=== PATIENT | male | born 1975 | race Two or more races ===

== ENCOUNTER 2017-02-08 19:58 | Emergency (ER) | payer OTHER ==
[2017-02-08 20:17] VITALS: BP 137/96; PULSE 80; RESP 18; TEMP 98.4; O2SAT 95
--- NOTE | 2017-02-08 20:38 | UCPHY ---
H & P Patient Type: Established Chief Complaint Nursing Narrative: L ear pain x 1 week, getting progressively worse the last few days. now with intermittent L chest pain with breathing. Time Seen by Provider: 02/08/17 20:17 HPI/ROS: Chief Complaint: Left ear pain, bilateral chest pain. HPI: 42-year-old male presenting with 1 week of worsening left ear pain. Patient has also been having intermittent pain in both sides of his chest. He states it hurts to move around and occasionally take hurts to take a deep breath. Does not worsen on exertion. No shortness of breath. He is waking up with it in noticing it when he gets up and moves around 1st thing in the morning. Gets better as the day goes on. No fevers or chills. No cough. No nausea or vomiting. Does not have a family history of coronary artery disease. No recent travel or periods of immobility. No leg pain or swelling. ROS: 10 point Review of Systems is negative except as noted in the HPI. PMH: None Medications: None Allergies no known drug allergies Social History: No smoking, occasional alcohol, no recreational drug use Family History: No family history of coronary artery disease or blood clotting disorders Physical Exam: Gen: Awake, Alert, No Distress HEENT: Ears: He has bilateral cerumen impactions left greater than right. When cleared there is no tympanic membrane erythema or effusion Nose: no rhinorrhea Eyes: PERRLA, EOMI Mouth: Moist mucosa Neck: Supple, no JVD Chest: Bilateral chest tenderness with palpation of the anterior ribcage is reproducing his presenting complaint., lungs clear to auscultation Heart: S1, S2 normal, no murmur Abd: Soft, non-tender, no guarding Back: no CVA tenderness, no midline tenderness Ext: no edema, non-tender Skin: no rash Neuro: CN II-XII intact, Sensation grossly intact, Strength 5/5 in bilateral upper and lower extremities - Personal History Current Tetanus Diphtheria and Acellular Pertussis (TDAP): Yes - Medical/Surgical History Hx Asthma: No Hx Chronic Respiratory Disease: No Hx Diabetes: No Hx Cardiac Disease: No Hx Renal Disease: No Hx Cirrhosis: No Hx Alcoholism: No Hx HIV/AIDS: No Hx Splenectomy or Spleen Trauma: No Other PMH: med hx-bronchitis. surg-none - Family History Significant Family History: No pertinent family hx - Social History Smoking Status: Former smoker Constitutional: Initial Vital Signs Temperature (C) 36.9 C 02/08/17 20:15 Heart Rate 80 02/08/17 20:15 Respiratory Rate 18 02/08/17 20:15 Blood Pressure 137/96 H 02/08/17 20:15 O2 Sat (%) 95 02/08/17 20:15 O2 Delivery Mode Room Air Allergies/Adverse Reactions: No Known Allergies Allergy (Verified 02/08/17 20:14) Home Medications: Medication Instructions Recorded NK [No Known Home Meds] 02/08/17 Medical Decision Making Procedures: Procedure: Cerumen removal. After a physical exam was performed cerumen needed to be removed from the patient's ear canal. The indication of the procedure was cerumen impaction and inability to complete the ear exam. The procedure was performed with warm water irrigation. The patient tolerated the procedure well. The procedure was performed by myself. ED Course/Re-evaluation: Patient presenting with left ear pain and chest pain which is reproducible here. Does not have any risk factors for coronary artery disease. Lungs are clear. Palpation of his anterior chest wall bilaterally parasternal a reproduces the presenting complaint. No findings suggestive of acute coronary syndrome or respiratory problem. Lungs are clear to auscultation. Departure - Departure Disposition: Home, Routine, Self-Care Clinical Impression: Chest wall pain, Cerumen impaction Condition: Good Instructions: Cerumen Impaction (ED), Chest Wall Pain (ED) Additional Instructions: May alternate ibuprofen with acetaminophen as needed for pain, fevers or chills. Follow up with primary care physician in 4-5 days for re-evaluation. Referrals: NONE *PRIMARY CARE P,. [Primary Care Provider] - As per Instructions [facility] [Outside] - As per Instructions - PQRS PQRS Measurement: NA
== END 2017-02-08 20:44 | disposition home or self-care (01) ==
LOC: CED 19:58
PROC: 3E1B78Z Irrigation of Ear using Irrigating Substance, Via Natural or Artificial Opening (ICD-10-PCS; principal; 2017-02-08)
DX: R07.9 Chest pain, unspecified (principal); H92.02 Otalgia, left ear
CPT/HCPCS: 69210-PO; 99214-PO; G0463-PO